=== PATIENT | male | born 1965 | race African-American/Black ===

== ENCOUNTER → 2025-07-09 | Day surgery (SDC) | payer OTHER ==
[~2025-07-09] VITALS: Ht 172.7 cm; Wt 90.3 kg
[~2025-07-09] MED LIST: ACETAMINOPHEN 1,000MG/100ML PREMIX IV PRN; AMLO5TAB88 PO; BUPIVACAINE HCL/PF 0.5% (5MG/ML) 10ML ONE; CEFAZOLIN SODIUM 1000MG/VIAL ONE; FAMOTIDINE 20MG/2ML VIAL IV ONE; FAMOTIDINE 20MG/2ML VIAL IV PRN; FENTANYL CITRATE/PF 50MCG/ML 2ML VIAL ONE; HYDRALAZINE 20MG/ML VIAL IV PRN; HYDROMORPHONE HCL/PF 1MG/ML INJ IV PRN; LABETALOL 5MG/ML 4ML INJ IV PRN; LACTATED RINGERS 1,000 ML IV SCH; MEPERIDINE HCL/PF 25MG/ML CPJ IV PRN; MIDAZOLAM HCL 2 MG/2 ML VIAL ONE; ONDANSETRON HCL 4MG/2ML INJ IV PRN; ONDANSETRON HCL 4MG/2ML INJ ONE; PROPOFOL 200MG/20ML VIAL IV ONE; ROCURONIUM BROMIDE 10MG/ML VIAL 5ML IV ONE; SKIN ADHESIVE 0.7 GM EA TOP ONE
[2025-07-09] MEDS: HYDRALAZINE 20MG/ML VIAL IV PRN (09:36)
== END | disposition home or self-care (01) ==
LOC: OR 06:55
DX: K40.90 Unilateral inguinal hernia, without obstruction or gangrene, not specified as recurrent (principal); I10 Essential (primary) hypertension; Z79.899 Other long term (current) drug therapy; Z98.890 Other specified postprocedural states
CPT/HCPCS: 49505; J3010; J0665; J0690; J1308; J0360; J2250; J2405; J2704; J3490; C1781